=== PATIENT | female | born 1945 | race Caucasian/White ===

== ENCOUNTER 2017-05-21 16:45 | Emergency (ER) | payer MEDICARE, BC ==
--- NOTE | ~2017-05-21 | CT4 ---
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 : 1945 SEX: F STUDY DATE/TIME: 05/21/2017 UNIT: SED ROOM: STUDY DESCRIPTION: CT Abd and Pelv Wo Cont Attending Physician: Estefania Weinstein A.P.R.N. Ordering Physician: Estefania Weinstein A.P.R.N. Primary Care Physician: Gladis Carpio Aprn MEDICAL IMAGING REPORT This report is preliminary unless electronic signature is present. EXAM CT abdomen and pelvis without contrast 05/21/2017 1755 hours HISTORY 71-year-old woman complaining of lower abdominal pain and diarrhea for 45 days. COMPARISON None. TECHNIQUE Helical non-contrasted images were obtained from the lung bases through the pubic symphysis without oral or intravenous contrast. Sagittal and coronal reconstructions were performed. Total exam DLP 1816 mGy/cm. This CT exam was performed with one or more of the following radiation dose reduction techniques: automatic exposure control, adjustment of mA and/or kV according to patient size, and iterative reconstruction. FINDINGS Images through the lung bases are clear. There are no effusions. There is a small hiatal hernia similar to prior chest CT 02/02/2015. Images through the abdomen demonstrate a normal non-contrasted appearance to the liver. The spleen is normal in size with multiple calcified granulomata, unchanged. The pancreas and bile ducts are normal. There are clips consistent with prior cholecystectomy. The adrenal glands are normal. The kidneys demonstrate no mass, stone or dilatation. The abdominal aorta is normal in caliber with atherosclerotic calcification present. The stomach is non-distended and unopacified but appears normal. There is no small bowel distension or air fluid levels. No small bowel wall thickening. The terminal ileum is normal. The appendix contains some STS. 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 There is no evidence of inflammation around the appendix. There is no distension of the colon or definite wall thickening. There are multiple diverticula in the distal descending colon and sigmoid colon without CT evidence of inflammation. CT pelvis demonstrates surgical absence of the uterus. There is no adnexal mass or free fluid. IMPRESSION 1. There is no definite bowel distension or definite bowel wall thickening. 2. The appendix is normal in caliber. There are small flecks of hyperdensity within the appendix which could represent retained contrast material versus tiny appendicoliths. There are no findings to suggest acute appendicitis. 3. Extensive diverticula at the distal descending colon and sigmoid colon without CT evidence of diverticulitis. 4. No renal or ureteral calculi. Dictated by... Chani Galindo M.D. THIS IS AN ELECTRONICALLY VERIFIED REPORT Chani Galindo M.D. at 05/22/2017 9:35 AM Keegan TD: 05/21/2017 22:17 JOB #: [id number] MEDICAL IMAGING REPORT Page 1 of 1
[~2017-05-21 16:45] MED LIST: ASPIRIN; ASPIRIN81 M2 PO; CALCIUM + D 6001 TA1 PO; CALCIUM 500 + D1 TAB; CENTRUM SILVER PO; FOLIC ACID; FOLIC ACID800 MCG PO; HUMERA; HUMERA SUBQ; HUMIRA40 MG/0.1 SQ; LASIX PO; METHOTREXATE2.5 MG; METHOTREXATE2.5 MG PO; MULTI-VITAMIN1 TAB; PLAQUENIL200 MG; PROTONIX PO; VICODIN 5/1 TAB 5/50 PO; VITAMIN D400 UNI2 PO; ZOLOFT; ZOLOFT PO; ZOLOFT50 MG PO
[2017-05-21 17:44] LABS: BASOPHIL% 0.4 % (0-2.5); DIFF IND NO; EOSINOPHIL% 0.1 % (0.0-7.0); HEMOGLOBIN 13.1 gm/dL (12.0-16.0); LYMPHOCYTE# 0.7 X10e3 (1.0-3.5); LYMPHOCYTE% 9.6 % (17.0-45.0); MEAN CELL VOLUME 96.4 FL (83-96); MEAN CORPUSCULAR HEMOGLOBIN 32.5 PG (28-34); MEAN CORPUSCULAR HGB CONC 33.7 g/dL (30-36); MONOCYTE# 0.6 X10e3 (0-1.0); MONOCYTE% 7.2 % (3.0-12.0); NEUTROPHIL# 6.4 X10e3 (1.5-7.1); NEUTROPHIL% 82.7 % (40-75); PLATELET COUNT 189 X10e3 (140-420); RED BLOOD COUNT 4.04 X10e (3.90-5.30); RED CELL DISTRIBUTION WIDTH 15.1 % (11.0-15.5); WHITE BLOOD COUNT 7.7 X10e3 (4.0-10.5)
[2017-05-21 18:11] LABS: ALBUMIN SERUM 3.4 g/dL (3.5-5.0); BILIRUBIN,TOTAL 0.4 mg/dL (0.2-2.0); BUN/CREATININE RATIO 15.55; CALCIUM SERUM 8.5 mg/dL (8.4-10.2); CREATININE SERUM 0.9 mg/dL (0.6-1.4); GLOM FILT RATE Estimated 64.4 mL/min (>60); PROTEIN TOTAL SERUM 7.6 g/dL (6.0-8.3)
[2017-05-21 18:12] LABS: POTASSIUM 2.7 mmol/L (3.5-5.1)
== END 2017-05-21 19:08 | disposition home or self-care (01) ==
LOC: SED 16:45
PROVIDERS: Nurse Practitioner
DX: K52.9 Noninfective gastroenteritis and colitis, unspecified (principal); K64.5 Perianal venous thrombosis; L30.8 Other specified dermatitis; E86.0 Dehydration; I10 Essential (primary) hypertension; M06.9 Rheumatoid arthritis, unspecified; Z90.49 Acquired absence of other specified parts of digestive tract; Z88.1 Allergy status to other antibiotic agents; Z79.899 Other long term (current) drug therapy; Z79.82 Long term (current) use of aspirin
CPT/HCPCS: 36415; 74176; 80053; 82270; 83630; 85025; 87045; 87177; 87209; 87427; 87493; 87899; 96361; 96374; 96375; 99284; J2270; J2405

== ENCOUNTER → 2017-06-23 | Outpatient (CLI) | payer MEDICARE, BC ==
--- NOTE | ~2017-06-23 | BD1 ---
[facility] A Service of [facility] & [facility] RADIOLOGY TEXT RESULTS PATIENT: MILTON GUTIÉRREZ LOCATION: [facility] : 45 UNIT #: [id number] AGE: [address]: GLADIS FIGUEROA APRN SEX: F ORDER DR: [id number] [address] [address] [id number] O MR#: [id number] Acc #: [id number] NAME: MILTON GUTIÉRREZ : 1945 SEX: F STUDY DATE/TIME: 06/23/2017 13:51 UNIT: [facility] ROOM: STUDY DESCRIPTION: Dexa Bone Dens 1+ Site Attending Physician: Gladis Figueroa Aprn Referring Physician: Gladis Figueroa Aprn Ordering Physician: Gladis Figueroa Aprn Primary Care Physician: Gladis Figueroa Aprn MEDICAL IMAGING REPORT This report is preliminary unless electronic signature is present. EXAM DXA scan, 06/23/2017 HISTORY Status post menopause with no hormone replacement therapy. Osteopenia. Steroid use for several years. High risk for osteoporosis. Smoking history for 25 years. Family history of osteoporosis in mother. FINDINGS Bone mineral density in the lumbar spine from L1 through L4 is 1.471 g/cm2 which is 2.4 standard deviations above the mean when compared to the young adult reference population which is within the range of normal. This is 2.9 standard deviations above the mean when compared to the age-matched population. Bone mineral density in the left femoral neck was 0.935 g/cm2 which is 0.7 standard deviations below the mean when compared to the young adult reference population which is within the range of normal. This is 0.3 standard deviations above the mean when compared to the age-matched population. Bone mineral density in the right femoral neck was 1.036 g/cm2 which is 0 standard deviations from the mean when compared to the young adult reference population which is within the range of normal. This is 1 standard deviation above the mean when compared to the age-matched population. IMPRESSION Bone mineral density in the lumbar spine and the hips bilaterally within the range of normal. Dictated by... Ernesot R. Dennis, M.D. THIS IS AN ELECTRONICALLY VERIFIED REPORT [facility]. [facility] A Service of [facility] & [facility] RADIOLOGY TEXT RESULTS PATIENT: MILTON GUTIÉRREZ LOCATION: [facility] : 45 UNIT #: [id number] AGE: [address]: GLADIS FIGUEROA APRN SEX: F ORDER DR: Ernesto Collins M.D. at 06/24/2017 7:14 AM GINNY/kelly TD: 06/23/2017 21:40 JOB #: [id number] MEDICAL IMAGING REPORT Page 1 of 1
== END | disposition home or self-care (01) ==
LOC: SRAD 13:00
DX: M81.0 Age-related osteoporosis without current pathological fracture (principal)
CPT/HCPCS: 36415; 77080; 80076; 85025